=== PATIENT | male | born 1975 | race Caucasian/White ===

== ENCOUNTER 2016-11-14 13:31 | Emergency (ER) | payer SELFPAY ==
--- NOTE | 2016-11-14 15:45 | ER Document Report ---
ED Medical Screen (RME) - General Chief Complaint: Leg Pain Stated Complaint: LEFT FOOT SWELLING Time Seen by Provider: 11/14/16 15:38 Mode of Arrival: Ambulatory Information source: Patient Notes: 41-year-old male history of sleep apnea who has not been on BiPAP machine with a history of diabetes presents with complaints of left foot pain tingling sensation as well as shortness of breath intermittent chest pain I have greeted and performed a rapid initial assessment of this patient. A comprehensive ED assessment and evaluation of the patient, analysis of test results and completion of the medical decision making process will be conducted by additional ED providers. PHYSICAL EXAMINATION: GENERAL: Well-appearing, well-nourished and in no acute distress. HEAD: Atraumatic, normocephalic. EYES: Pupils equal round extraocular movements intact, conjunctiva are normal. ENT: Nares patent NECK: Normal range of motion LUNGS: No respiratory distress Musculoskeletal: Normal range of motion NEUROLOGICAL: Normal speech, normal gait. PSYCH: Normal mood, normal affect. SKIN: Warm, Dry, normal turgor, no rashes or lesions noted. TRAVEL OUTSIDE OF THE [place] IN LAST 30 DAYS: No - Related Data Allergies/Adverse Reactions: No Known Allergies Allergy (Verified 11/14/16 14:10) Past Medical History - Social History Chew tobacco use (# tins/day): No Frequency of alcohol use: None Drug Abuse: None - Past Medical History Cardiac Medical History: Denies: Hx Coronary Artery Disease, Hx Hypertension Pulmonary Medical History: Denies: Hx Asthma, Hx Bronchitis, Hx COPD, Hx Pneumonia Neurological Medical History: Denies: Hx Cerebrovascular Accident, Hx Seizures Endocrine Medical History: Reports: Hx Diabetes Mellitus Type 2 Renal/ Medical History: Denies: Hx Peritoneal Dialysis Musculoskeltal Medical History: Denies Hx Arthritis Past Surgical History: Reports: Hx Neurologic Surgery - L4-L5 disc trim - Immunizations Hx Diphtheria, Pertussis, Tetanus Vaccination: Yes Physical Exam - Vital signs Vitals: Temp Pulse Resp BP Pulse Ox 98.5 F 87 16 152/85 H 97 11/14/16 14:05 11/14/16 14:05 11/14/16 14:05 11/14/16 14:05 11/14/16 14:05 Course - Vital Signs Vital signs: Temp Pulse Resp BP Pulse Ox 98.5 F 87 16 152/85 H 97 11/14/16 14:05 11/14/16 14:05 11/14/16 14:05 11/14/16 14:05 11/14/16 14:05
[2016-11-14 16:08] LABS: ABSOLUTE BASOPHILS # (AUTO) 0.1 10^3/uL (0.0-0.2); ABSOLUTE EOSINOPHILS # (AUTO) 0.5 10^3/uL (0.0-0.6); ABSOLUTE LYMPHOCYTES (AUTO) 3.2 10^3/uL (0.5-4.7); ABSOLUTE MONOCYTES (AUTO) 0.8 10^3/uL (0.1-1.4); ABSOLUTE NEUT (AUTO) 5.7 10^3/uL (1.7-8.2); EOSINOPHILS % (AUTO) 4.8 % (0-6); HEMATOCRIT 46.1 % (37.9-51.0); HEMOGLOBIN 15.9 g/dL (13.5-17.0); HGB HCT DIFFERENCE 1.6; LYMPHOCYTES % (AUTO) 30.7 % (13-45); MEAN CORPUSCULAR HEMOGLOBIN 29.9 pg (27.0-33.4); MEAN CORPUSCULAR HGB CONC 34.5 g/dL (32.0-36.0); MEAN CORPUSCULAR VOLUME 87 fl (80-97); MONOCYTES % (AUTO) 8.2 % (3-13); RED BLOOD COUNT 5.33 10^6/uL (4.35-5.55); RED CELL DISTRIBUTION WIDTH 14.3 % (11.5-14.0); SEGMENTED NEUTROPHILS % (AUTO) 55.3 % (42-78); WHITE BLOOD COUNT 10.3 10^3/uL (4.0-10.5)
--- NOTE | 2016-11-14 16:10 | RADIOLOGY REPORT (SQ) ---
EXAM DESCRIPTION: CHEST PA/LAT COMPLETED DATE/TIME: 11/14/2016 3:59 pm REASON FOR STUDY: intermittnet chest pain COMPARISON: 12/12/2015. EXAM PARAMETERS: NUMBER OF VIEWS: two views TECHNIQUE: Digital Frontal and Lateral radiographic views of the chest acquired. RADIATION DOSE: NA LIMITATIONS: none FINDINGS: LUNGS AND PLEURA: Mild chronic interstitial changes. No opacities, masses or pneumothorax . No pleural effusion. MEDIASTINUM AND HILAR STRUCTURES: No masses or contour abnormalities. HEART AND VASCULAR STRUCTURES: Heart normal size. No evidence for failure. BONES: No acute findings. HARDWARE: None in the chest. OTHER: No other significant finding. IMPRESSION: NO ACUTE RADIOGRAPHIC FINDING IN THE CHEST. TECHNICAL DOCUMENTATION: JOB ID: [id number]- All Rights Reserved
[2016-11-14 16:20] LABS: ALANINE AMINOTRANSFERASE 54 U/L (21-72); ALBUMIN 4.5 g/dL (3.5-5.0); ALKALINE PHOSPHATASE 84 U/L (38-126); ANION GAP 12 (5-19); ASPARTATE AMINO TRANSFERASE 25 U/L (17-59); BILIRUBIN,DIRECT 0.3 mg/dL (0.0-0.4); BILIRUBIN,TOTAL 0.7 mg/dL (0.2-1.3); BLOOD UREA NITROGEN 11 mg/dL (7-20); CALCIUM 9.6 mg/dL (8.4-10.2); CARBON DIOXIDE 26 mmol/L (22-30); CHLORIDE 102 mmol/L (98-107); CREATINE KINASE 321 U/L (55-170); CREATININE RESULT 0.62 mg/dL (0.52-1.25); GLUCOSE 183 mg/dL (75-110); POTASSIUM 4.6 mmol/L (3.6-5.0); SODIUM 140.1 mmol/L (137-145); TOTAL PROTEIN 7.5 g/dL (6.3-8.2)
--- NOTE | 2016-11-14 16:29 | ER Document Report ---
HPI - HPI Pain Level: 4 Notes: Patient is a 41-year-old male who presents the ED complaining of left lower extremity pain and swelling 1 month intermittently but has been constant since this morning upon waking up. Patient states that the pain increases with ambulation. He is not aware of any known injury. He has associated numbness and tingling into his foot without any back pain. Patient states that he feels like his left lower leg/foot is a little swollen when compared to the right. Patient does state that he did have a previous L4 through L5 neck surgery, but has not had any other back pains since the surgery years ago. Patient states that he is also had dyspnea on exertion and fatigue over the last month without any correlating chest pain. Pt states he will become SOB walking to the bathroom and back. Patient states that on occasion when he lays down he will have a substernal chest pain which resolved after a few minutes. Pt states that he is not sure if it is related to his mild anxiety. Patient has a significant past medical history of diabetes and KAYLEIGH. Patient states that he does has not been on any medication in a couple of years has not been using his CPAP machine. Patient denies any drug allergies. Patient does admit to smoking but denies any illicit drug use. [place] [facility] [place] Patient states that currently he does not have any trouble breathing or shortness of breath. His primary concern right now is his left lower extremity discomfort. Patient states that both of his hands and both of his feet do become numb and tingly on and off over the last several months. Patient states that he is still eating and drinking without any difficulties. Patient does note urinary frequency without any burning, blood, or urgency. His bowel movements have been normal as well. Denies any headache, fever, URI, sore throat, palpitations, syncope, cough, hemoptysis, shortness of breath at rest, wheeze, abdominal pain, nausea/ vomiting/diarrhea, urinary retention, dysuria, hematuria, loss of control of bowel or bladder, saddle anesthesia, muscle paralysis/weakness, or rash. - ROS Notes: REVIEW OF SYSTEMS: CONSTITUTIONAL : Denies fever, chills, or sweats. Denies recent illness. EENT: Denies eye, ear, throat, or mouth pain or symptoms. Denies nasal or sinus congestion or discharge. Denies throat, tongue, or mouth swelling or difficulty swallowing. CARDIOVASCULAR: see hpi RESPIRATORY: Denies cough, cold, or chest congestion. Denies shortness of breath, difficulty breathing, or wheezing. GASTROINTESTINAL: Denies abdominal pain or distention. Denies nausea, vomiting , or diarrhea. Denies blood in vomitus, stools, or per rectum. Denies black, tarry stools. Denies constipation. GENITOURINARY: Denies difficulty urinating, painful urination, burning, frequency, blood in urine, or discharge. MUSCULOSKELETAL: see hpi SKIN: Denies rash, lesions or sores. NEUROLOGICAL: Denies confusion or altered mental status. Denies passing out or loss of consciousness. Denies dizziness or lightheadedness. Denies headache. Denies weakness or paralysis or loss of use of either side. Denies problems with gait or speech. Denies sensory loss, numbness, or tingling. Denies seizures. PSYCHIATRIC: see hpi. Denies depression, suicidal ideation, or homicidal ideation. ALL OTHER SYSTEMS REVIEWED AND NEGATIVE. Dictation was performed using [employer] voice recognition software - DERM Skin Color: Normal Past Medical History - General Information source: Patient - Social History Smoking Status: Current Every Day Smoker Chew tobacco use (# tins/day): No Frequency of alcohol use: None Drug Abuse: None Family History: Reviewed & Not Pertinent Patient has suicidal ideation: No Patient has homicidal ideation: No - Past Medical History Cardiac Medical History: Denies: Hx Coronary Artery Disease, Hx Hypertension Pulmonary Medical History: Denies: Hx Asthma, Hx Bronchitis, Hx COPD, Hx Pneumonia Neurological Medical History: Denies: Hx Cerebrovascular Accident, Hx Seizures Endocrine Medical History: Reports: Hx Diabetes Mellitus Type 2 Renal/ Medical History: Denies: Hx Peritoneal Dialysis Musculoskeltal Medical History: Denies Hx Arthritis Past Surgical History: Reports: Hx Neurologic Surgery - L4-L5 disc trim - Immunizations Hx Diphtheria, Pertussis, Tetanus Vaccination: Yes Vertical Provider Document - CONSTITUTIONAL Agree With Documented VS: Yes Notes: PHYSICAL EXAMINATION: GENERAL: Well-appearing, well-nourished and in no acute distress. Obese. HEAD: Atraumatic, normocephalic. EYES: Pupils equal round and reactive to light, extraocular movements intact, sclera anicteric, conjunctiva are normal. ENT: EAC clear b/l. TM's intact b/l without erythema, fluid, or perforation. Nares patent and without discharge. oropharynx clear without exudates. No tonsilar hypertrophy or erythema. Moist mucous membranes. No sinus tenderness. NECK: Normal range of motion, supple without lymphadenopathy. no rigidity. LUNGS: Breath sounds clear to auscultation bilaterally and equal. No wheezes rales or rhonchi. HEART: Regular rate and rhythm without murmurs, rubs, gallops. ABDOMEN: Soft, nontender, nondistended abdomen. No guarding, no rebound. No masses appreciated. Normal bowel sounds present. No CVA tenderness bilaterally. Musculoskeletal: LE's b/l: FROM to passive/active. Strength 5+/5. Dec sensation to the left foot when compared to the rt proximal to the mid foot near L5 distribution. Pulses 2+ b/l. Carola mildly positive to the left calf. No excessive warmth or erythema. No inguinal adenopathy or masses appreciated. No abscess, streaks, or cellulitis noted. SLR negative b/l. Extremities: No cyanosis, clubbing, or edema b/l. Peripheral pulses 2+. Capillary refill less than 2 seconds. NEUROLOGICAL: Normal speech. Pt favors left leg. Normal motor exam. PSYCH: Normal mood, normal affect. SKIN: Warm, Dry, normal turgor, no rashes or lesions noted. - INFECTION CONTROL TRAVEL OUTSIDE OF THE [place] IN LAST 30 DAYS: No - RESPIRATORY O2 Sat by Pulse Oximetry: 97 Course - Re-evaluation Re-evalutation: 11/14/16 18:34 Patient is an afebrile, well-hydrated, 41-year-old diabetic male who presents to the ED with dyspnea on exertion, fatigue, left lower extremity pain. I suspect that he may have peripheral neuritis causing his pain related to his diabetes. Vitals are stable. PE otherwise unremarkable for any other focal neurological deficits. CXR, EKG, and Lt LE US were unremarkable for any acute pathology. CBC, CMP, and initial Cardiac Enzymes unremarkable. EKG and serial cardiac enzymes pending (1949). Heart score of 2. Reviewed with Dr. Navarro who would like the serial enzymes and admit for further eval/work up tomorrow. 11/14/16 20:50 BNP negative. 2nd Cardiac Enzymes negative CTA of the chest negative for acute pathology Reviewed case with patient who is in agreement with being admitted for further evaluation and probable testing tomorrow. Reviewed case with Dr. Knight, hospitalist, who declined admission for the patient. Dr. Knight said, "it is not real" pertaining to his GOMEZ based on his work up and ambulatory pulse o2 >96%. At this time, we will discharge with strict return precautions and advised strict outpatient f/u with the welding machine operator helper gas and his PCM tomorrow if able. Risks/ benefits understood. Low suspicion for any ruptured esophagus, pneumothorax, pulmonary embolism, acute coronary syndrome, thoracic aortic dissection, or DVT at this time. Patient is aware that his condition can change from initial presentation he needs to monitor symptoms closely for any acute changes and seek medical attention if so. Conservative measures for symptoms. Return to the ED with any worsening/concerning symptoms otherwise as reviewed discharge. Patient is in agreement. - Vital Signs Vital signs: Temp Pulse Resp BP Pulse Ox 98.5 F 87 16 152/85 H 97 11/14/16 14:05 11/14/16 14:05 11/14/16 14:05 11/14/16 14:05 11/14/16 14:05 - Laboratory Result Diagrams: 11/14/16 15:50 11/14/16 15:50 Laboratory results interpreted by me: 11/14/16 11/14/16 15:50 15:50 RDW 14.3 H Plt Count 146 L Glucose 183 H Creatine Kinase 321 H Discharge - Discharge Clinical Impression: Dyspnea on exertion, Lower extremity pain, left Condition: Stable Disposition: HOME, SELF-CARE Additional Instructions: Rest, Ice, Compression, Elevation Tylenol/ibuprofen as needed Light stretches daily Strength exercises as able Moist heat and massage may help F/u with your PCP tomorrow for recheck Call Cardiology for a consult tomorrow for recheck and further evaluation Consider consult(s) with Orthopedics, physical therapy for ongoing/worsening symptoms Return to the ED with any worsening symptoms and/or development of fever, headache, chest pain, palpitations, syncope, shortness of breath, trouble breathing, abdominal pain, n/v/d, blood in stool/urine, loss of control of bowel /bladder, urinary retention, muscle weakness/paralysis, saddle anesthesia, numbness/tingling, or other worsening symptoms that are concerning to you. Forms: Elevated Blood Pressure, Smoking Cessation Education Referrals: OSCAR WISE MD [ACTIVE STAFF] - Follow up tomorrow PRESTON PEREZ MD [ACTIVE STAFF] - [facility] [Provider Group] - Follow up tomorrow
[2016-11-14 16:32] LABS: CREATINE KINASE MB 2.69 ng/mL (<4.55)
[2016-11-14 16:33] LABS: TROPONIN I < 0.012 ng/mL
--- NOTE | 2016-11-14 17:00 | EKG REPORT ---
SEVERITY:- NORMAL ECG - SINUS RHYTHM : Confirmed by: Hilario Murphy MD 14-Nov-2016 16:58:50
--- NOTE | 2016-11-14 18:52 | RADIOLOGY REPORT (SQ) ---
EXAM DESCRIPTION: VENOUS UNILATERAL LOWER COMPLETED DATE/TIME: 11/14/2016 6:07 pm REASON FOR STUDY: Left LE pain COMPARISON: None. TECHNIQUE: Dynamic and static soni scale and color images acquired of the left leg venous system. Se lected spectral images acquired with additional compression and augmentation maneuvers. The contralat eral common femoral vein and saphenofemoral junction were also imaged. Images stored on PACS. LIMITATIONS: None. FINDINGS: COMMON FEMORAL: Normal phasicity, compression and augmentation. No visualized echogenic ma terial on soni scale. No defects on color images. FEMORAL: Normal compression and augmentation. No visualized echogenic material on soni scale. No defe cts on color images. POPLITEAL: Normal compression, augmentation. No visualized echogenic material on soni scale. No defec ts on color images. CALF VESSELS: Normal compression, augmentation. No visualized echogenic material on soni scale. No de fects on color images. GSV and SSV: Normal compression, augmentation. No visualized echogenic material on soni scale. No def ects on color images. ANY DEEP VENOUS INSUFFICIENCY: Not evaluated. ANY EVIDENCE OF POPLITEAL CYST: No. OTHER: No other significant finding. CONTRALATERAL COMMON FEMORAL VEIN AND SAPHENOFEMORAL JUNCTION: Normal phasicity, compression and augmentation. No visualized echogenic material on soni scale. No de fects on color images. IMPRESSION: No DVT. TECHNICAL DOCUMENTATION: JOB ID: [id number] [employer]- All Rights Reserved
[2016-11-14 19:33] LABS: APPEARANCE,URINE CLEAR; BILIRUBIN,URINE NEGATIVE (NEGATIVE); GLUCOSE, URINE NEGATIVE (NEGATIVE); KETONES,URINE NEGATIVE (NEGATIVE); LEUKOCYTE ESTERASE,URINE NEGATIVE (NEGATIVE); NITRITE,URINE NEGATIVE (NEGATIVE); PROTEIN,URINE NEGATIVE (NEGATIVE); URINE SPECIFIC GRAVITY 1.025
--- NOTE | 2016-11-14 20:09 | RADIOLOGY REPORT (SQ) ---
EXAM DESCRIPTION: CTA CHEST COMPLETED DATE/TIME: 11/14/2016 7:27 pm REASON FOR STUDY: GOMEZ COMPARISON: None. TECHNIQUE: CT scan of the chest performed using helical scanning technique with dynamic intravenous contrast injection. Images reviewed with lung, soft tissue and bone windows. Reconstructed coronal and sagittal MPR images reviewed. Additional 3 dimensional post-processing performed to develop Maximal Intensity Projection images (IL P). All images stored on PACS. All CT scanners at this facility use dose modulation, iterative reconstruction, and/or weight based d osing when appropriate to reduce radiation dose to as low as reasonably achievable (ALARA). [facility]: Dose Right [facility]: CareDose [facility]: Dose Right [facility]: Teradose 4D [facility]: Kofikafe CONTRAST TYPE AND DOSE: contrast/concentration: Isovue 370.00 mg/ml; Total Contrast Delivered: 157.0 ml; Total Saline Delivered: 140.0 ml RENAL FUNCTION: GFR > 60. RADIATION DOSE: Up-to-date CT equipment and radiation dose reduction techniques were employed. CTDIv ol: 46.9 - 58.6 mGy. DLP: 4092 mGy-cm. . LIMITATIONS: Systemic phase contrast bolus timing and mild breathing motion artifact. FINDINGS: LUNGS AND PLEURA: Mild bronchial wall thickening. No masses, infiltrates, pneumothorax. No pleural effusions, calcifications. AORTA AND GREAT VESSELS: No aneurysm or dissection. HEART: No pericardial effusion. PULMONARY ARTERIES: No emboli visualized in the main pulmonary arteries. Contrast bolus timing and b reathing motion limits evaluation of the segmental branches. HILAR AND MEDIASTINAL STRUCTURES: No identified masses or abnormal nodes. HARDWARE: None in the chest. UPPER ABDOMEN: No significant findings. Limited exam. THYROID AND OTHER SOFT TISSUES: No masses. No adenopathy. BONES: No acute or significant finding. 3D MIPS: Confirm above findings. OTHER: No other significant finding. IMPRESSION: No emboli visualized in the main pulmonary arteries. Contrast bolus timing and breathin g motion limits evaluation of the segmental branches. Mild bronchial wall thickening. No consolidat ion. TECHNICAL DOCUMENTATION: JOB ID: [id number] Quality ID # [id number]: Final reports with documentation of one or more dose reduction techniques (e.g., Au tomated exposure control, adjustment of the mA and/or kV according to patient size, use of iterative reconstruction technique) 2010 [employer]- All Rights Reserved
[2016-11-14 20:34] LABS: CREATINE KINASE MB 2.48 ng/mL (<4.55)
[2016-11-14 20:38] LABS: TROPONIN I < 0.012 ng/mL
--- NOTE | 2016-11-14 21:27 | EKG REPORT ---
SEVERITY:- ABNORMAL ECG - SINUS RHYTHM PROBABLE INFERIOR INFARCT, OLD : Confirmed by: Hilario Murphy MD 14-Nov-2016 21:27:25
[2016-11-14 21:30] VITALS: BP 149/84
== END 2016-11-14 21:20 | disposition home or self-care (01) ==
LOC: ER 13:31
DX: M79.605 Pain in left leg (principal); R06.09 Other forms of dyspnea; R53.83 Other fatigue; R20.0 Anesthesia of skin; R20.2 Paresthesia of skin; R07.89 Other chest pain; F41.9 Anxiety disorder, unspecified; E11.9 Type 2 diabetes mellitus without complications; R35.0 Frequency of micturition; F17.200 Nicotine dependence, unspecified, uncomplicated
CPT/HCPCS: 36415; 71020; 71275; 80053; 81001; 82550; 82553; 83880; 84484; 85025; 93005; 93010; 93971; 99284

== ENCOUNTER 2016-12-28 19:24 | Emergency (ER) | payer SELFPAY ==
--- NOTE | 2016-12-28 19:48 | ER Document Report ---
ED General - General Chief Complaint: Chest Pain Stated Complaint: CHEST PAIN Time Seen by Provider: 12/28/16 19:36 Notes: Patient is a 41-year-old male who comes emergency department for complaints of headache and a pain in his chest. He states that he was "feeling very stressed " and he started having a throbbing headache, he got out of his truck and he felt a pain through the center of his chest that lasted for a few seconds, he states that he buckled and went slowly down to the ground, he did not hit his head on the ground. He denies syncope. He denies vomiting. He denies pain or stiffness in his neck, denies fever. He states he has been getting headaches frequently recently. He smokes, he denies any daily medications. He states he is stressed out for multiple reasons including custody issues, relationship issues, and family illnesses. He denies any family history of [place] or heart disease. Patient given 324 mg of aspirin and one SL nitroglycerin by EMS. TRAVEL OUTSIDE OF THE [place] IN LAST 30 DAYS: No - Related Data Allergies/Adverse Reactions: No Known Allergies Allergy (Verified 11/14/16 14:10) Past Medical History - General Information source: Patient - Social History Smoking Status: Current Every Day Smoker Smoking Education Provided: Yes - <3 min Frequency of alcohol use: None Drug Abuse: None Lives with: Family Family History: Reviewed & Not Pertinent - Past Medical History Cardiac Medical History: Denies: Hx Coronary Artery Disease, Hx Hypertension Pulmonary Medical History: Denies: Hx Asthma, Hx Bronchitis, Hx COPD, Hx Pneumonia Neurological Medical History: Denies: Hx Cerebrovascular Accident, Hx Seizures Endocrine Medical History: Reports: Hx Diabetes Mellitus Type 2 Renal/ Medical History: Denies: Hx Peritoneal Dialysis Musculoskeltal Medical History: Denies Hx Arthritis Past Surgical History: Reports: Hx Neurologic Surgery - L4-L5 disc trim - Immunizations Hx Diphtheria, Pertussis, Tetanus Vaccination: Yes Review of Systems - Review of Systems Constitutional: No symptoms reported EENT: No symptoms reported Cardiovascular: See HPI Respiratory: No symptoms reported Gastrointestinal: No symptoms reported Genitourinary: No symptoms reported Male Genitourinary: No symptoms reported Musculoskeletal: No symptoms reported Skin: No symptoms reported Hematologic/Lymphatic: No symptoms reported Neurological/Psychological: See HPI Physical Exam - Vital signs Vitals: Resp BP Pulse Ox 14 139/77 H 95 12/28/16 19:41 12/28/16 19:41 12/28/16 19:41 Interpretation: Normal - General General appearance: Appears well, Alert, Anxious In distress: None - Patient appears nervous and worked up but he does not appear to be in distress - HEENT Head: Normocephalic, Atraumatic Eyes: Normal Pupils: PERRL - Respiratory Respiratory status: No respiratory distress Chest status: Nontender Breath sounds: Normal. No: Decreased air movement, Wheezing Chest palpation: Normal - Cardiovascular Rhythm: Regular. No: Tachycardia Heart sounds: Normal auscultation, S1 appreciated, S2 appreciated Murmur: No - Abdominal Inspection: Normal Distension: No distension Bowel sounds: Normal Tenderness: Nontender Organomegaly: No organomegaly - Back Back: Normal, Nontender. No: Tender - Extremities General upper extremity: Normal inspection, Nontender, Normal color, Normal ROM , Normal temperature General lower extremity: Normal inspection, Nontender, Normal color, Normal ROM , Normal temperature, Normal weight bearing. No: Carola's sign - Neurological Neuro grossly intact: Yes Cognition: Normal Orientation: AAOx4 Slade Coma Scale Eye Opening: Spontaneous Slade Coma Scale Verbal: Oriented Slade Coma Scale Motor: Obeys Commands [place] Coma Scale Total: 15 Speech: Normal Motor strength normal: LUE, RUE, LLE, RLE Sensory: Normal - Psychological Associated symptoms: Normal affect, Normal mood - Skin Skin Temperature: Warm Skin Moisture: Dry Skin Color: Normal, Flushed - Patient is mildly flushed in appearance Course - Re-evaluation Re-evalutation: Patient initially very anxious, he is only worried about his headache. EKG shows sinus tachycardia with no T-wave inversions or ST segment changes in consecutive leads. No significant change from prior. Although patient appears anxious he does not appear to be in distress, he has a normal neurological examination. Because of sudden onset of headache after discussion decision was made to perform CAT scan to rule out subarachnoid hemorrhage or other acute intracranial abnormality. Headache started about 1.5 hours ago, well within the window 3 hours for optimal imaging. CAT scan performed, shows incidental cyst in the right temporal area but no acute abnormalities. After Reglan and Benadryl patient's headache resolved. CBC, chemistry with no concerning acute abnormalities. Cardiac enzymes negative. Chest x-ray unremarkable. Patient with no repeat of the few seconds of discomfort in his chest that he had earlier. His heart score is less than 3. Repeat cardiac enzyme is negative. On re-evaluation patient well appearing, asking to leave. Discussed workup findings. Patient states he feels like he just gets stressed and anxious. He already has 18 pills left over of ativan given to him from before. He states he will use them sparingly and as needed during this time. He denies SI or HI. He states he will follow up with his PCP first for the cyst. Discussed return precautions. Patient states understanding and agreement. - Vital Signs Vital signs: Temp Pulse Resp BP Pulse Ox 18 133/84 H 96 12/29/16 00:00 12/29/16 00:00 12/29/16 00:00 - Laboratory Result Diagrams: 12/28/16 19:49 12/28/16 19:49 Laboratory results interpreted by me: 12/28/16 19:49 Glucose 144 H Creatine Kinase 180 H Discharge - Discharge Clinical Impression: Anxiety Headache Qualifiers: Headache type: unspecified Headache chronicity pattern: acute headache Intractability: not intractable Qualified Code(s): R51 - Headache Chest pain Qualifiers: Chest pain type: unspecified Qualified Code(s): R07.9 - Chest pain, unspecified Condition: Stable Disposition: HOME, SELF-CARE Additional Instructions: Your workup and exam show no concerning abnormalities. There is an incidental finding of a cyst in your brain (see report given). Follow up with your Primary Provider for additional referral and monitoring. Take your previously prescribed Ativan if needed for anxiety, take Tylenol or ibuprofen for headache if needed. Return to the ED for any concerning symptoms -return or worsening headache or chest pain, vomiting, fever, shortness of breath, or any other concerning symptoms. Forms: Return to Work
[2016-12-28 20:05] LABS: ABSOLUTE BASOPHILS # (AUTO) 0.1 10^3/uL (0.0-0.2); ABSOLUTE EOSINOPHILS # (AUTO) 0.3 10^3/uL (0.0-0.6); ABSOLUTE LYMPHOCYTES (AUTO) 2.3 10^3/uL (0.5-4.7); ABSOLUTE MONOCYTES (AUTO) 0.6 10^3/uL (0.1-1.4); ABSOLUTE NEUT (AUTO) 6.9 10^3/uL (1.7-8.2); BASOPHILS % (AUTO) 0.7 % (0-2); EOSINOPHILS % (AUTO) 2.9 % (0-6); HEMOGLOBIN 15.1 g/dL (13.5-17.0); HGB HCT DIFFERENCE 3.3; MEAN CORPUSCULAR HEMOGLOBIN 30.3 pg (27.0-33.4); MEAN CORPUSCULAR VOLUME 84 fl (80-97); RED BLOOD COUNT 4.98 10^6/uL (4.35-5.55); SEGMENTED NEUTROPHILS % (AUTO) 67.4 % (42-78); WHITE BLOOD COUNT 10.2 10^3/uL (4.0-10.5)
--- NOTE | 2016-12-28 20:24 | RADIOLOGY REPORT (SQ) ---
EXAM DESCRIPTION: CT HEAD WITHOUT COMPLETED DATE/TIME: 12/28/2016 7:59 pm REASON FOR STUDY: sudden onset headache COMPARISON: None. TECHNIQUE: Axial images acquired through the brain without intravenous contrast. Images reviewed wi th bone, brain and subdural windows. Images stored on PACS. All CT scanners at this facility use dose modulation, iterative reconstruction, and/or weight based d osing when appropriate to reduce radiation dose to as low as reasonably achievable (ALARA). [facility]: Dose Right [facility]: CareDose [facility]: Dose Right [facility]: Teradose 4D [facility]: [employer] RADIATION DOSE: Up-to-date CT equipment and radiation dose reduction techniques were employed. CTDIv ol: 64.6 mGy. DLP: 1163 mGy-cm. mGy. LIMITATIONS: None. FINDINGS: VENTRICLES: Normal size and contour. CEREBRUM: No masses. No hemorrhage. No midline shift. No evidence for acute infarction. Normal gra y/white matter differentiation. No areas of low density in the white matter. A small arachnoid cyst is identified at the level of the anterior right temporal lobe. CEREBELLUM: No masses. No hemorrhage. No alteration of density. No evidence for acute infarction. EXTRAAXIAL SPACES: No fluid collections. No masses. ORBITS AND GLOBE: No intra- or extraconal masses. Normal contour of globe without masses. CALVARIUM: No fracture. PARANASAL SINUSES: No fluid or mucosal thickening. SOFT TISSUES: No mass or hematoma. OTHER: No other significant finding. IMPRESSION: Small arachnoid cyst at the level of the anterior right temporal lobe. No other signifi cant findings. Other findings as noted above EVIDENCE OF ACUTE STROKE: NO. COMMENT: Quality ID # [id number]: Final reports with documentation of one or more dose reduction techniques (e.g., Automated exposure control, adjustment of the mA and/or kV according to patient size, use of iterative reconstruction technique) TECHNICAL DOCUMENTATION: JOB ID: [id number] [employer]- All Rights Reserved
--- NOTE | 2016-12-28 20:26 | RADIOLOGY REPORT (SQ) ---
EXAM DESCRIPTION: CHEST SINGLE VIEW COMPLETED DATE/TIME: 12/28/2016 8:01 pm REASON FOR STUDY: bed 3 cp COMPARISON: November 2016 EXAM PARAMETERS: NUMBER OF VIEWS: One view. TECHNIQUE: Single frontal radiographic view of the chest acquired. RADIATION DOSE: NA LIMITATIONS: None. FINDINGS: LUNGS AND PLEURA: No opacities, masses or pneumothorax. No pleural effusion. MEDIASTINUM AND HILAR STRUCTURES: No masses. Contour normal. HEART AND VASCULAR STRUCTURES: Heart normal in size. Normal vasculature. BONES: No acute findings. HARDWARE: None in the chest. OTHER: No other significant finding. IMPRESSION: NO ACUTE RADIOGRAPHIC FINDING IN THE CHEST. TECHNICAL DOCUMENTATION: JOB ID: [id number]
[2016-12-28] MEDS ORDERED: METOCLOPRAMIDE HCL INJ/PF 10 MG/2 ML SDV IV ONE (20:31)
[2016-12-28] MEDS ORDERED: DIPHENHYDRAMINE HCL 50 MG/ML VIAL IV ONE (20:31)
[2016-12-28 20:33] LABS: ALANINE AMINOTRANSFERASE 53 U/L (21-72); ALBUMIN 4.4 g/dL (3.5-5.0); ALKALINE PHOSPHATASE 97 U/L (38-126); ANION GAP 13 (5-19); ASPARTATE AMINO TRANSFERASE 29 U/L (17-59); BILIRUBIN,DIRECT 0.4 mg/dL (0.0-0.4); BILIRUBIN,TOTAL 0.8 mg/dL (0.2-1.3); BLOOD UREA NITROGEN 12 mg/dL (7-20); CALCIUM 9.8 mg/dL (8.4-10.2); CARBON DIOXIDE 23 mmol/L (22-30); CHLORIDE 105 mmol/L (98-107); CREATINE KINASE 180 U/L (55-170); CREATININE RESULT 0.65 mg/dL (0.52-1.25); GLUCOSE 144 mg/dL (75-110); POTASSIUM 4.1 mmol/L (3.6-5.0); SODIUM 140.5 mmol/L (137-145); TOTAL PROTEIN 7.2 g/dL (6.3-8.2)
[2016-12-28 20:44] LABS: CREATINE KINASE MB 1.81 ng/mL (<4.55)
[2016-12-28 20:45] LABS: TROPONIN I < 0.012 ng/mL
[2016-12-29 00:19] VITALS: BP 133/84
--- NOTE | 2016-12-29 08:25 | EKG REPORT ---
SEVERITY:- OTHERWISE NORMAL ECG - SINUS TACHYCARDIA : Confirmed by: Hilario Murphy MD 29-Dec-2016 08:24:49
== END 2016-12-29 00:22 | disposition home or self-care (01) ==
LOC: ER 19:24
DX: F41.9 Anxiety disorder, unspecified (principal); R07.9 Chest pain, unspecified; R51 Headache; F17.210 Nicotine dependence, cigarettes, uncomplicated; E11.9 Type 2 diabetes mellitus without complications
CPT/HCPCS: 93005; 99285; 96374; 96375; 36415; 82553; 82550; 85025; 80053; 84484; 71010; 70450; 93010; J1200; J2765

== ENCOUNTER 2017-08-22 17:40 | Emergency (ER) | payer BC ==
--- NOTE | 2017-08-22 18:55 | ER Document Report ---
ED Medical Screen (RME) - General Chief Complaint: Leg Pain Stated Complaint: LEG PAIN Time Seen by Provider: 08/22/17 18:41 Notes: RAPID MEDICAL EVALUATION DISCLOSURE I have seen this patient as part of a Rapid Medical Evaluation and, if applicable, placed any initially appropriate orders. The patient will be seen and fully evaluated, including a full history and physical exam, by a provider ( in Main ED or Fast Track) when a room becomes available. 41-year-old male here with complaints of bilateral leg swelling and shortness of breath progressively worsening over the past few weeks. He has noticed that he also has pain along with the swelling in his legs and that the left appears to be larger than the right. He has no prior history of DVT. He has chest pain "off and on" chronically but this morning had some chest pressure however does not have any. He denies any history of COPD or CHF. He does smoke cigarettes. EXAM Mild to moderate lower extremity swelling, left greater than right Bibasilar rales/rhonchi TRAVEL OUTSIDE OF THE [place] IN LAST 30 DAYS: No - Related Data Allergies/Adverse Reactions: No Known Allergies Allergy (Verified 11/14/16 14:10) Past Medical History - Social History Frequency of alcohol use: Occasional Drug Abuse: None - Past Medical History Cardiac Medical History: Denies: Hx Coronary Artery Disease, Hx Hypertension Pulmonary Medical History: Denies: Hx Asthma, Hx Bronchitis, Hx COPD, Hx Pneumonia Neurological Medical History: Denies: Hx Cerebrovascular Accident, Hx Seizures Endocrine Medical History: Reports: Hx Diabetes Mellitus Type 2 Renal/ Medical History: Denies: Hx Peritoneal Dialysis Musculoskeltal Medical History: Denies Hx Arthritis Past Surgical History: Reports: Hx Neurologic Surgery - L4-L5 disc trim - Immunizations Hx Diphtheria, Pertussis, Tetanus Vaccination: Yes Physical Exam - Vital signs Vitals: Temp Pulse Resp BP Pulse Ox 98.7 F 79 18 154/91 H 94 08/22/17 18:22 08/22/17 18:22 08/22/17 18:22 08/22/17 18:22 08/22/17 18:22 Course - Vital Signs Vital signs: Temp Pulse Resp BP Pulse Ox 98.7 F 79 18 154/91 H 94 08/22/17 18:22 08/22/17 18:22 08/22/17 18:22 08/22/17 18:22 08/22/17 18:22
[2017-08-22 19:31] LABS: ABSOLUTE BASOPHILS # (AUTO) 0.1 10^3/uL (0.0-0.2); ABSOLUTE EOSINOPHILS # (AUTO) 0.5 10^3/uL (0.0-0.6); ABSOLUTE LYMPHOCYTES (AUTO) 2.9 10^3/uL (0.5-4.7); ABSOLUTE MONOCYTES (AUTO) 0.7 10^3/uL (0.1-1.4); ABSOLUTE NEUT (AUTO) 5.5 10^3/uL (1.7-8.2); BASOPHILS % (AUTO) 0.6 % (0-2); EOSINOPHILS % (AUTO) 4.8 % (0-6); HEMATOCRIT 45.2 % (37.9-51.0); HEMOGLOBIN 15.5 g/dL (13.5-17.0); LYMPHOCYTES % (AUTO) 30.7 % (13-45); MEAN CORPUSCULAR HEMOGLOBIN 28.9 pg (27.0-33.4); MEAN CORPUSCULAR HGB CONC 34.3 g/dL (32.0-36.0); MEAN CORPUSCULAR VOLUME 84 fl (80-97); MONOCYTES % (AUTO) 7.1 % (3-13); PLATELET COUNT 158 10^3/uL (150-450); RED BLOOD COUNT 5.37 10^6/uL (4.35-5.55); RED CELL DISTRIBUTION WIDTH 14.2 % (11.5-14.0); SEGMENTED NEUTROPHILS % (AUTO) 56.8 % (42-78); TOTAL CELLS COUNTED % (AUTO) 100 %; WHITE BLOOD COUNT 9.6 10^3/uL (4.0-10.5)
[2017-08-22 19:46] LABS: ALANINE AMINOTRANSFERASE 57 U/L (21-72); ALBUMIN 4.3 g/dL (3.5-5.0); ALKALINE PHOSPHATASE 77 U/L (38-126); ANION GAP 16 (5-19); ASPARTATE AMINO TRANSFERASE 23 U/L (17-59); BILIRUBIN,DIRECT 0.3 mg/dL (0.0-0.4); BILIRUBIN,TOTAL 0.4 mg/dL (0.2-1.3); BLOOD UREA NITROGEN 10 mg/dL (7-20); CALCIUM 9.1 mg/dL (8.4-10.2); CARBON DIOXIDE 22 mmol/L (22-30); CHLORIDE 107 mmol/L (98-107); GLUCOSE 99 mg/dL (75-110); POTASSIUM 4.3 mmol/L (3.6-5.0); SODIUM 144.9 mmol/L (137-145)
[2017-08-22 19:59] LABS: NT PRO BNP 50 pg/mL (<125)
[2017-08-22 20:01] LABS: TROPONIN I < 0.012 ng/mL
--- NOTE | 2017-08-22 20:11 | RADIOLOGY REPORT (SQ) ---
EXAM DESCRIPTION: CHEST 2 VIEWS COMPLETED DATE/TIME: 08/22/2017 7:27 pm REASON FOR STUDY: SOB; eval COMPARISON: Chest x-ray 12/28/2016. EXAM PARAMETERS: NUMBER OF VIEWS: two views TECHNIQUE: Digital Frontal and Lateral radiographic views of the chest acquired. RADIATION DOSE: NA LIMITATIONS: none FINDINGS: LUNGS AND PLEURA: No consolidation, pneumothorax or pleural effusion. MEDIASTINUM AND HILAR STRUCTURES: No masses or contour abnormalities. HEART AND VASCULAR STRUCTURES: Heart normal size. No evidence for failure. BONES: No acute findings. HARDWARE: None in the chest. IMPRESSION: No acute radiographic finding in the chest. TECHNICAL DOCUMENTATION: JOB ID: [id number] [employer]- All Rights Reserved Reading location - IP/workstation name: [email or web address]
--- NOTE | 2017-08-22 20:18 | EKG REPORT ---
SEVERITY:- ABNORMAL ECG - SINUS RHYTHM PROBABLE INFERIOR INFARCT, AGE INDETERMINATE : Confirmed by: Vero Arshad 22-Aug-2017 20:17:43
[2017-08-22] MEDS ORDERED: NAPROXEN 250 MG TABLET PO ONE (22:40)
[2017-08-22] MEDS ORDERED: FLUOXETINE HCL 20 MG CAPSULE PO ONE (22:42)
--- NOTE | 2017-08-22 22:47 | ER Document Report ---
ED General - General Chief Complaint: Leg Pain Stated Complaint: LEG PAIN Time Seen by Provider: 08/22/17 18:41 Notes: Patient is a 41-year-old male with a past medical history of morbid obesity, chronic anxiety who presents with 1 month of intermittent episodes of severe pain to the left foot which she states shoots up into his left leg and typically causes him to become diaphoretic nauseated have vomiting and sometimes have associated headaches. He notes that he has chronic chest pressure typically due to feelings of anxiety and he notes that this is not new or different today. He states that he had one of these episodes today which is more severe than normal which prompted him come to the emergency department. He states these episodes are typically prompted by him walking on the foot or standing up after prolonged period of sitting. He describes it as a severe, stabbing pain to the bottom of his left foot that radiates up the entirety of his leg. He denies any history of similar symptoms prior to the past 1 month. He has not seen a primary care doctor regarding today's concerns. No injury to the foot. No history of DVT or pulmonary embolus. He has not tried anything to improve his pain. His at the bedside notes that she believes he has panic attacks due to the severity of the pain. TRAVEL OUTSIDE OF THE [place] IN LAST 30 DAYS: No - Related Data Allergies/Adverse Reactions: No Known Allergies Allergy (Verified 11/14/16 14:10) Past Medical History - General Information source: Patient - Social History Smoking Status: Current Every Day Smoker Chew tobacco use (# tins/day): No Frequency of alcohol use: Occasional Drug Abuse: None Lives with: Spouse/Significant other Family History: Reviewed & Not Pertinent Patient has suicidal ideation: No Patient has homicidal ideation: No - Past Medical History Cardiac Medical History: Denies: Hx Coronary Artery Disease, Hx Hypertension Pulmonary Medical History: Denies: Hx Asthma, Hx Bronchitis, Hx COPD, Hx Pneumonia Neurological Medical History: Denies: Hx Cerebrovascular Accident, Hx Seizures Endocrine Medical History: Reports: Hx Diabetes Mellitus Type 2 - diet controlled Renal/ Medical History: Denies: Hx Peritoneal Dialysis Musculoskeltal Medical History: Denies Hx Arthritis Past Surgical History: Reports: Hx Neurologic Surgery - L4-L5 disc trim - Immunizations Hx Diphtheria, Pertussis, Tetanus Vaccination: Yes Review of Systems - Review of Systems Notes: Constitutional: Negative for fever. HENT: Negative for sore throat. Eyes: Negative for visual changes. Cardiovascular: Negative for chest pain. Respiratory: Negative for shortness of breath. Gastrointestinal: Negative for abdominal pain, positive for nausea and vomiting Genitourinary: Negative for dysuria. Musculoskeletal: Positive for left foot pain Skin: Negative for rash. Neurological: Negative for headaches, weakness or numbness. 10 point ROS negative except as marked above and in HPI. Physical Exam - Vital signs Vitals: Temp Pulse Resp BP Pulse Ox 98.7 F 79 18 154/91 H 94 08/22/17 18:22 08/22/17 18:22 08/22/17 18:22 08/22/17 18:22 08/22/17 18:22 Interpretation: Hypertensive Notes: PHYSICAL EXAMINATION: GENERAL: Well-appearing, well-nourished and in no acute distress. HEAD: Atraumatic, normocephalic. EYES: Pupils equal round and reactive to light, extraocular movements intact, sclera anicteric, conjunctiva are normal. ENT: nares patent, oropharynx clear without exudates. Moist mucous membranes. NECK: Normal range of motion, supple without lymphadenopathy LUNGS: Breath sounds clear to auscultation bilaterally and equal. No wheezes rales or rhonchi. HEART: Regular rate and rhythm without murmurs ABDOMEN: Soft, morbidly obese abdomen, nontender, normoactive bowel sounds. No guarding, no rebound. No masses appreciated. EXTREMITIES: Normal range of motion, no pitting or edema. No cyanosis. Severe pain on palpation of the central plantar surface of the left foot. Hyper dorsiflexion reproduces pain patient reports. NEUROLOGICAL: No focal neurological deficits. Moves all extremities spontaneously and on command. PSYCH: Moderately anxious SKIN: Warm, Dry, normal turgor, no rashes or lesions noted. Course - Re-evaluation Re-evalutation: 08/22/17 22:42 Patient presents with multiple vague complaints that did not appear to be concerning for any acute life-threatening pathology. Vitals are within normal limits at triage and at time of discharge. Physical examination is unremarkable. Patient has tolerated oral intake without difficulty. Patient was not noted to be in distress at any point during their ER visit. At this time, based on the reassuring evaluation, I do not suspect an acute NH, pulmonary embolus, aortic dissection, acute intra-abdominal pathology, stroke, or sepsis. Ultimately, I believe that the patient has developed acute plantar fasciitis of his left foot based on clinical examination where he has acute tenderness to palpation in this area as well as with hyperextension of the foot which causes a reproduction of the pain he experiences. It appears that the patient likely has an associated panic attack each time he has 1 of these episodes given his otherwise unremarkable workup and the fact of the clinical history is not make sense for any other alternative life-threatening pathology. I have reviewed with the patient the need for immediate weight loss, measures that he can take to improve his plantar fasciitis, and have started him on fluoxetine for his chronic anxiety with associated panic attacks. I have encouraged him to discontinue regular use of sandals. Will discharge with return precautions and follow-up recommendations. Verbal discharge instructions given a the bedside and opportunity for questions given. Medication warnings reviewed. Patient is in agreement with this plan and has verbalized understanding of return precautions and the need for primary care follow-up in the next 24-72 hours. - Vital Signs Vital signs: Temp Pulse Resp BP Pulse Ox 98.0 F 72 18 152/90 H 95 08/22/17 23:04 08/22/17 23:04 08/22/17 23:04 08/22/17 23:04 08/22/17 23:04 - Laboratory Result Diagrams: 08/22/17 19:17 08/22/17 19:17 Laboratory results interpreted by me: 08/22/17 19:17 RDW 14.2 H - Diagnostic Test Radiology reviewed: Image reviewed, Reports reviewed Radiology results interpreted by me: 08/22/17 22:44 Chest x-ray: No acute infiltrate or pneumothorax - EKG Interpretation by Me Additional EKG results interpreted by me: 08/22/17 22:44 Normal sinus rhythm. Rate 69. No ST elevations or depressions. QTC is 403. Discharge - Discharge Clinical Impression: Left foot pain, Plantar fasciitis of left foot, Panic attack, Morbid obesity, Anxiety Condition: Good Disposition: HOME, SELF-CARE Additional Instructions: As we discussed today, please discontinue the use of sandals and wear well fitting shoes with insoles that support your foot. Take the naproxen has been prescribed for the next 2 weeks and see if this helps reduce the discomfort at the bottom of your foot. You should roll a tennis ball or lacrosse ball underneath your foot to help reduce your pain. You should also follow-up with a sports medicine doctor for further assistance with management of your plantar fasciitis. I believe you are having panic attacks associated with your painful episodes. The remainder of your workup is normal today. Your being started on fluoxetine to help control your daily anxiety and reduce the frequency of your panic attacks. Please return to the emergency room immediately if you experience any concerning symptoms including high fevers, severe headache, chest pain, difficulty breathing, abdominal pain, slurred speech, numbness or weakness in your arms or legs, or any other symptom that concerns you. Prescriptions: Fluoxetine HCl 20 mg PO DAILY #30 tablet Naproxen 500 mg PO BID #30 tablet Forms: Return to Work Referrals: PRITI BREEN MD [Primary Care Provider] - Follow up in 3-5 days
[2017-08-22 23:09] VITALS: BP 152/90
--- NOTE | 2017-08-23 11:33 | XCELERA REPORT ---
[address] [address] Lower Extremity Venous Evaluation Name: BK GONZALES III Age: 41 yrs Gender: Male : 1975 Patient Status: Emergency Patient Location: ER Study Date: 08/22/2017 08:59 PM Procedure: Color flow and duplex imaging bilaterally of the veins of the lower extremities as well as the Common Femoral veins. Reason For Study: leg swelling, L>R Ordering Physician: ANDREINA RINALDI Performed By: Brenton Dominique Right Sided Venous Evaluation Difficult to visualize the Peroneal veins. Normal vessel filling wall to wall, compression and augmentation as well as Colour flow down to the infrageniculate veins. Left Sided Venous Evaluation Difficult to visualize the Peroneal veins. Normal vessel filling wall to wall, compression and augmentation as well as Colour flow down to the infrageniculate veins. Interpretation Summary No duplex evidence of DVT or obstruction in the bilateral lower extremities. : ANDREINA RINALDI [place]
== END 2017-08-22 23:09 | disposition home or self-care (01) ==
LOC: ER 17:40
DX: M72.2 Plantar fascial fibromatosis (principal); M79.672 Pain in left foot; F41.0 Panic disorder [episodic paroxysmal anxiety]; F41.9 Anxiety disorder, unspecified; R07.89 Other chest pain; E66.01 Morbid (severe) obesity due to excess calories; Z68.41 Body mass index [BMI] 40.0-44.9, adult; F17.200 Nicotine dependence, unspecified, uncomplicated; E11.9 Type 2 diabetes mellitus without complications
CPT/HCPCS: 36415; 71046; 80053; 83880; 84484; 85025; 93005; 93010; 93970; 99284

== ENCOUNTER 2017-10-25 20:12 | Emergency (ER) | payer BC ==
--- NOTE | 2017-10-25 20:52 | ER Document Report ---
ED Medical Screen (RME) - General Chief Complaint: Headache Stated Complaint: HEADACHE, DIFFICULTY BREATHING Time Seen by Provider: 10/25/17 20:37 Notes: RAPID MEDICAL EVALUATION DISCLOSURE I have seen this patient as part of a Rapid Medical Evaluation and, if applicable, placed any initially appropriate orders. The patient will be seen and fully evaluated, including a full history and physical exam, by a provider ( in Main ED or Fast Track) when a room becomes available. 42-year-old male here with complaints of shortness of breath ongoing for the past few days. He does not have any cough or chest pain/discomfort. He has had bilateral leg swelling ongoing for the past few months, waxing and waning. His symptoms are worse with exertion and laying flat. He also complains of some headaches ongoing for the past 1 month however they have improved and are now more of a "nagging pain". He denies any previous history of heart failure [place]. EXAM Minimal to mild bibasilar rales RRR 1+ pitting edema at the mid shins TRAVEL OUTSIDE OF THE [place] IN LAST 30 DAYS: No - Related Data Allergies/Adverse Reactions: No Known Allergies Allergy (Verified 11/14/16 14:10) Past Medical History - Past Medical History Cardiac Medical History: Denies: Hx Coronary Artery Disease, Hx Hypertension Pulmonary Medical History: Denies: Hx Asthma, Hx Bronchitis, Hx COPD, Hx Pneumonia Neurological Medical History: Denies: Hx Cerebrovascular Accident, Hx Seizures Endocrine Medical History: Reports: Hx Diabetes Mellitus Type 2 - diet controlled Renal/ Medical History: Denies: Hx Peritoneal Dialysis Musculoskeltal Medical History: Denies Hx Arthritis Past Surgical History: Reports: Hx Neurologic Surgery - L4-L5 disc trim - Immunizations Hx Diphtheria, Pertussis, Tetanus Vaccination: Yes Physical Exam - Vital signs Vitals: Temp Pulse Resp BP Pulse Ox 98.8 F 79 20 175/83 H 96 10/25/17 20:30 10/25/17 20:30 10/25/17 20:30 10/25/17 20:30 10/25/17 20:30 Course - Vital Signs Vital signs: Temp Pulse Resp BP Pulse Ox 98.8 F 79 20 175/83 H 96 10/25/17 20:30 10/25/17 20:30 10/25/17 20:30 10/25/17 20:30 10/25/17 20:30 Doctor's Discharge - Discharge Referrals: PRITI BREEN MD [Primary Care Provider] - Follow up as needed
[2017-10-25 21:12] LABS: ABSOLUTE BASOPHILS # (AUTO) 0.1 10^3/uL (0.0-0.2); ABSOLUTE EOSINOPHILS # (AUTO) 0.5 10^3/uL (0.0-0.6); ABSOLUTE LYMPHOCYTES (AUTO) 3.1 10^3/uL (0.5-4.7); ABSOLUTE MONOCYTES (AUTO) 0.5 10^3/uL (0.1-1.4); ABSOLUTE NEUT (AUTO) 5.5 10^3/uL (1.7-8.2); BASOPHILS % (AUTO) 1.2 % (0-2); EOSINOPHILS % (AUTO) 4.9 % (0-6); HEMOGLOBIN 15.3 g/dL (13.5-17.0); LYMPHOCYTES % (AUTO) 31.9 % (13-45); MEAN CORPUSCULAR HEMOGLOBIN 30.8 pg (27.0-33.4); MEAN CORPUSCULAR HGB CONC 36.5 g/dL (32.0-36.0); MEAN CORPUSCULAR VOLUME 85 fl (80-97); MONOCYTES % (AUTO) 5.2 % (3-13); PLATELET COUNT 161 10^3/uL (150-450); RED BLOOD COUNT 4.98 10^6/uL (4.35-5.55); RED CELL DISTRIBUTION WIDTH 13.9 % (11.5-14.0); SEGMENTED NEUTROPHILS % (AUTO) 56.8 % (42-78); TOTAL CELLS COUNTED % (AUTO) 100 %; WHITE BLOOD COUNT 9.7 10^3/uL (4.0-10.5)
--- NOTE | 2017-10-25 21:23 | RADIOLOGY REPORT (SQ) ---
EXAM DESCRIPTION: CHEST 2 VIEWS COMPLETED DATE/TIME: 10/25/2017 9:05 pm REASON FOR STUDY: SOB leg swelling; edema? pna? COMPARISON: 08/22/2017 TECHNIQUE: Frontal and lateral radiographic views of the chest acquired. NUMBER OF VIEWS: Two view. LIMITATIONS: None. FINDINGS: LUNGS AND PLEURA: No opacities, masses or pneumothorax. No pleural effusion. MEDIASTINUM AND HILAR STRUCTURES: No masses or contour abnormalities. HEART AND VASCULAR STRUCTURES: Heart normal size. No evidence for failure. BONES: No acute findings. HARDWARE: None in the chest. OTHER: No other significant finding. IMPRESSION: NO SIGNIFICANT RADIOGRAPHIC FINDING IN THE CHEST. TECHNICAL DOCUMENTATION: JOB ID: [id number] [employer]- All Rights Reserved Reading location - IP/workstation name: [email or web address]
[2017-10-25 21:29] LABS: ALANINE AMINOTRANSFERASE 43 U/L (21-72); ALBUMIN 4.1 g/dL (3.5-5.0); ALKALINE PHOSPHATASE 81 U/L (38-126); ANION GAP 14 (5-19); ASPARTATE AMINO TRANSFERASE 30 U/L (17-59); BILIRUBIN,DIRECT 0.4 mg/dL (0.0-0.4); BILIRUBIN,TOTAL 0.4 mg/dL (0.2-1.3); BLOOD UREA NITROGEN 11 mg/dL (7-20); CARBON DIOXIDE 23 mmol/L (22-30); CHLORIDE 106 mmol/L (98-107); GLUCOSE 196 mg/dL (75-110); SODIUM 143.1 mmol/L (137-145); TOTAL PROTEIN 7.3 g/dL (6.3-8.2)
[2017-10-25 21:35] LABS: NT PRO BNP 115 pg/mL (<125)
[2017-10-25 21:39] LABS: TROPONIN I < 0.012 ng/mL
[2017-10-25] MEDS ORDERED: HYDROCHLOROTHIAZIDE 12.5 MG TABLET PO ONE (22:51)
[2017-10-25] MEDS ORDERED: ALBUTEROL SULFATE 0.083% NEB 2.5 MG/3 ML AMPUL NEB ONE (22:54)
--- NOTE | 2017-10-25 22:56 | ER Document Report ---
ED General - General Chief Complaint: Headache Stated Complaint: HEADACHE, DIFFICULTY BREATHING Time Seen by Provider: 10/25/17 20:37 Notes: Patient is a 42-year-old male who presents with complaint of to 3 weeks of headaches that are mostly when he first wakes up. He also has noticed some leg swelling and edema. Is also fell a bit short of breath. No associated chest pain. No fevers. No infections. He says he has history of sleep apnea. He is going through divorce and just lost CPAP and has no idea where it is. He denies seeing a doctor about the medical problems. He saw [facility] in the past but has not seen them in a long time is currently not taking any medications. He does smoke. Has had some wheezing. TRAVEL OUTSIDE OF THE [place] IN LAST 30 DAYS: No - Related Data Allergies/Adverse Reactions: No Known Allergies Allergy (Verified 11/14/16 14:10) Past Medical History - Social History Smoking Status: Current Every Day Smoker Chew tobacco use (# tins/day): No Frequency of alcohol use: Occasional Drug Abuse: None Family History: Reviewed & Not Pertinent Patient has suicidal ideation: No Patient has homicidal ideation: No - Past Medical History Cardiac Medical History: Denies: Hx Coronary Artery Disease, Hx Hypertension Pulmonary Medical History: Denies: Hx Asthma, Hx Bronchitis, Hx COPD, Hx Pneumonia Neurological Medical History: Denies: Hx Cerebrovascular Accident, Hx Seizures Endocrine Medical History: Reports: Hx Diabetes Mellitus Type 2 - diet controlled Renal/ Medical History: Denies: Hx Peritoneal Dialysis Musculoskeletal Medical History: Denies Hx Arthritis Past Surgical History: Reports: Hx Neurologic Surgery - L4-L5 disc trim - Immunizations Hx Diphtheria, Pertussis, Tetanus Vaccination: Yes Review of Systems - Review of Systems Notes: My Normal Review Basic REVIEW OF SYSTEMS: CONSTITUTIONAL : Denies fever, chills, or sweats. Denies recent illness. EENT: Denies eye, ear, throat, or mouth pain or symptoms. Denies nasal or sinus congestion. CARDIOVASCULAR: Denies chest pain. RESPIRATORY: Some shortness of breath. Wheezing. GASTROINTESTINAL: Denies abdominal pain. Denies nausea, vomiting, or diarrhea. MUSCULOSKELETAL: Leg swelling SKIN: Denies rash or skin lesions. NEUROLOGICAL: Denies altered mental status or loss of consciousness. As headache. Denies weakness or paralysis or loss of use of either side. Denies problems with gait or speech. Denies sensory or motor loss. ALL OTHER SYSTEMS REVIEWED AND NEGATIVE. Physical Exam - Vital signs Vitals: Temp Pulse Resp BP Pulse Ox 98.8 F 79 20 175/83 H 96 10/25/17 20:30 10/25/17 20:30 10/25/17 20:30 10/25/17 20:30 10/25/17 20:30 - Notes Notes: General Appearance: Well nourished, alert, cooperative, no acute distress, no obvious discomfort. Vitals: reviewed, See vital signs table. Head: no swelling or tenderness to the head Eyes: PERRL, EOMI, Conjuctiva clear Mouth: No decreasd moisture Neck: Supple, no neck tenderness, No thyromegaly Lungs: scattered mild wheezing, No rales, No rhonci, No accessory muscle use, good air exchange bilaterally. Heart: Normal rate, Regular rythm, No murmur, no rub Abdomen: Normal BS, soft, No rigidity, No abdominal tenderness, No guarding, no rebound, Extremities: strength 5/5 in all extremities, good pulses in all extremities, no swelling or tenderness in the extremities, bilateral trace edema. Skin: warm, dry, appropriate color, no rash Neuro: speech clear, oriented x 3, normal affect, responds appropriately to questions. Course - Re-evaluation Re-evalutation: 10/26/17 01:02 Patient did have some improvement of his wheezing with albuterol treatment. I encouraged him to quit smoking will give an albuterol inhaler to go home with. I did give him dose hydrochlorothiazide which she did tolerate well without any reaction. I will prescribe him the hydrochlorothiazide to help better control his blood pressure. Patient is to be followed by the [facility]. He has just not followed up with them in a while. I informed her it is very important he follows up with them as soon as possible for reevaluation and continued treatment of his high blood pressure. I suspect that his headache and some of his shortness of breath and leg swelling most likely is related to him not having his CPAP machine anymore. His headaches and symptoms are much worse in the morning when he first wakes up. I talked about the importance of having a CPAP that without it to go on to have heart failure and other concerning conditions. Patient said he would follow up with the mixing operator about being reevaluated in being placed back on CPAP. I referred him to both our mixing operator and told to call the offices to see you can get him in the quickest. I encourage him return to ER immediately if he has any worsening of his symptoms or if he feels unwell. Patient agrees with plan will be discharged home. Dictation of this chart was performed using voice recognition software; therefore, there may be some unintended grammatical errors. - Vital Signs Vital signs: Temp Pulse Resp BP Pulse Ox 98.8 F 79 20 175/83 H 96 10/25/17 20:30 10/25/17 20:30 10/25/17 20:30 10/25/17 20:30 10/25/17 20:30 - Laboratory Result Diagrams: 10/25/17 20:56 10/25/17 20:56 Laboratory results interpreted by me: 10/25/17 10/25/17 20:56 20:56 MCHC 36.5 H Glucose 196 H Discharge - Discharge Clinical Impression: Wheezing, Leg swelling Sleep apnea Qualifiers: Sleep apnea type: unspecified type Qualified Code(s): G47.30 - Sleep apnea, unspecified Hypertension Qualifiers: Hypertension type: unspecified Qualified Code(s): I10 - Essential (primary) hypertension Condition: Good Disposition: HOME, SELF-CARE Additional Instructions: I suspect that most of your symptoms are related to you being without your CPAP machine. Sleep apnea when untreated can cause difficulty breathing, headaches, extremity swelling. It is very important that you get back on a CPAP machine. Please follow-up with Dr. Garcia or Dr. Torres about reevaluation and recommendations about being placed back on your CPAP machine. Your blood pressure is a little bit high. Please take blood pressure medication as prescribed. Please try to reestablish yourself with your primary care doctor and follow-up with them in the next week for reevaluation. Return to ER if you have chest pain, worsening difficulty breathing, fevers, or if you feel unwell. You did have some wheezing on exam. Please try to quit smoking. You can use the albuterol inhaler as 2 puffs every 4 hours as needed for wheezing. Prescriptions: Hydrochlorothiazide 12.5 mg PO DAILY #14 tablet Forms: Return to Work Referrals: VÍCTOR TORRES MD [ACTIVE STAFF] - Follow up in 3-5 days BLANCA GARCIA MD [ACTIVE STAFF] - Follow up in 3-5 days
[2017-10-26] MEDS ORDERED: ALBUTEROL SULFATE HFA (90 MCG/PUFF) 8 GM MDI (1 MDI/ER DISP) IH ONE (00:56)
[2017-10-26 01:37] VITALS: BP 129/86
== END 2017-10-26 01:15 | disposition home or self-care (01) ==
LOC: ER 20:12
DX: G47.30 Sleep apnea, unspecified (principal); R06.2 Wheezing; M79.89 Other specified soft tissue disorders; R51 Headache; I10 Essential (primary) hypertension; F17.200 Nicotine dependence, unspecified, uncomplicated
CPT/HCPCS: 94640; 99285; 36415; 85025; 80053; 84484; 83880; 71046; J3490

== ENCOUNTER 2017-11-14 02:27 | Emergency (ER) | payer BC ==
[2017-11-14 02:57] LABS: ABSOLUTE BASOPHILS # (AUTO) 0.1 10^3/uL (0.0-0.2); ABSOLUTE EOSINOPHILS # (AUTO) 0.4 10^3/uL (0.0-0.6); ABSOLUTE LYMPHOCYTES (AUTO) 3.1 10^3/uL (0.5-4.7); ABSOLUTE MONOCYTES (AUTO) 0.5 10^3/uL (0.1-1.4); ABSOLUTE NEUT (AUTO) 4.8 10^3/uL (1.7-8.2); BASOPHILS % (AUTO) 0.6 % (0-2); HEMATOCRIT 41.6 % (37.9-51.0); HEMOGLOBIN 14.6 g/dL (13.5-17.0); LYMPHOCYTES % (AUTO) 34.4 % (13-45); MEAN CORPUSCULAR HEMOGLOBIN 29.4 pg (27.0-33.4); MEAN CORPUSCULAR HGB CONC 35.2 g/dL (32.0-36.0); MEAN CORPUSCULAR VOLUME 84 fl (80-97); MONOCYTES % (AUTO) 5.9 % (3-13); PLATELET COUNT 149 10^3/uL (150-450); RED BLOOD COUNT 4.97 10^6/uL (4.35-5.55); RED CELL DISTRIBUTION WIDTH 13.7 % (11.5-14.0); SEGMENTED NEUTROPHILS % (AUTO) 54.1 % (42-78); TOTAL CELLS COUNTED % (AUTO) 100 %; WHITE BLOOD COUNT 8.9 10^3/uL (4.0-10.5)
[2017-11-14] MEDS ORDERED: MORPHINE SULFATE 10 MG/ML INJ IV ONE (03:09)
--- NOTE | 2017-11-14 03:11 | ER Document Report ---
ED General - General Stated Complaint: POSSIBLE SYNCOPE Time Seen by Provider: 11/14/17 02:57 Notes: Patient is a 42-year-old male who presents with complaint of an episode where he started to feel very weak suddenly diaphoretic and dizzy. He was at work when this occurred. He says he was just wiping off the counters. He was not doing any exertional. He went to his bosses office and then passed out. When he woke up he had a severe headache. The only complaint he has is of pain on his left shoulder from where he hit his left shoulder. Denies any chest pain. No focal weakness or numbness. Some nausea but no vomiting. He does have family history of cerebral aneurysms. TRAVEL OUTSIDE OF THE [place] IN LAST 30 DAYS: No - Related Data Allergies/Adverse Reactions: No Known Allergies Allergy (Verified 11/14/16 14:10) Past Medical History - Social History Smoking Status: Unknown if Ever Smoked Frequency of alcohol use: None Drug Abuse: None Family History: Reviewed & Not Pertinent - Past Medical History Cardiac Medical History: Denies: Hx Coronary Artery Disease, Hx Hypertension Pulmonary Medical History: Denies: Hx Asthma, Hx Bronchitis, Hx COPD, Hx Pneumonia Neurological Medical History: Denies: Hx Cerebrovascular Accident, Hx Seizures Endocrine Medical History: Reports: Hx Diabetes Mellitus Type 2 - diet controlled Renal/ Medical History: Denies: Hx Peritoneal Dialysis Musculoskeletal Medical History: Denies Hx Arthritis Past Surgical History: Reports: Hx Neurologic Surgery - L4-L5 disc trim - Immunizations Hx Diphtheria, Pertussis, Tetanus Vaccination: Yes Physical Exam - Vital signs Vitals: Resp 12 11/14/17 02:31 Course - Re-evaluation Re-evalutation: 11/14/17 03:09 Patient's symptoms are concerning and that he had a syncopal episode followed by severe headache and his family history of cerebral aneurysms. I have ordered a CT scan and informed the nurse to take him directly to CT. 11/14/17 03:44 CT scan does not show any bleeding however does show a arachnoid cyst. Patient says is been told for the arachnoid cyst as well as follow-up and have a contrasted study to make sure it was an arachnoid cyst, but he never did. I will do a CT angiogram to make sure that there is not an associated aneurysm. 11/14/17 05:06 CTA fortunately does not show evidence of aneurysm. Patient's headache is improved. I do not suspect subarachnoid hemorrhage now that patient has both a CT and CTA that were done within 3 hours of the onset of symptoms and they are both negative. I am concerned with patient's syncopal episode and diaphoresis and sweating had leading up to the passing out. I informed him that I feel that is appropriate to admit him. I told him that his syncope could be related to an OH, arrhythmia or something that is more serious that we are not yet seen on the initial workup here in the ER. I strongly encouraged him to stay in the hospital as an observation with telemetry in order to fully workup his syncopal episode. Patient refuses to stay in the hospital. He wants to leave. After long conversation was able to get him to at least stay for repeat troponin. I have ordered a repeat troponin now. 11/14/17 06:34 Repeat Troponin is negative. Patient still does not want to stay in the ER. I informed him that respect his decision to not want stay however we do want him to stay because I do not know the exact cause of a syncopal episode and his diaphoresis and him feeling unwell. I informed him that I cannot rule out life- threatening calls of his syncopal episode of initial testing done here. I feel that he needs to stay for telemetry observation. Patient shows understanding of this but still does not want to stay and says his family doctor has follow- up hours and he will follow-up with his doctor today in office. I informed patient that we are happy to take care of him at any time and strongly encourage him return to ER anytime for reevaluation and continued workup. Patient will be discharged as he requested. Dictation of this chart was performed using voice recognition software; therefore, there may be some unintended grammatical errors. - Vital Signs Vital signs: Temp Pulse Resp BP Pulse Ox 98.7 F 18 117/46 L 96 11/14/17 02:34 11/14/17 05:31 11/14/17 05:31 11/14/17 05:31 - Laboratory Result Diagrams: 11/14/17 02:45 11/14/17 02:45 Laboratory results interpreted by me: 11/14/17 11/14/17 11/14/17 02:45 02:45 04:02 Plt Count 149 L Glucose 123 H Urine Urobilinogen 2.0 H - EKG Interpretation by Me Additional EKG results interpreted by me: 11/14/17 03:18 EKG is reviewed and interpreted by me. EKG shows normal sinus rhythm with a rate of [address] segment elevation or depression. No ischemic T wave inversions. MT interval is borderline. QRS duration, QTc intervals are within normal range. Old EKG for comparison is from August 22, 2017. Discharge - Discharge Clinical Impression: Syncope Qualifiers: Syncope type: unspecified Qualified Code(s): R55 - Syncope and collapse Headache Qualifiers: Headache type: unspecified Headache chronicity pattern: acute headache Intractability: not intractable Qualified Code(s): R51 - Headache Condition: Good Disposition: HOME, SELF-CARE Additional Instructions: As discussed with you, I do not know the exact cause of your passing out episode today. I feel that you should stay in the hospital because we do not know what has caused your passing out episode and I do not feel I can fully rule out a life-threatening or serious cause. We respect your right to make the decision to not want to stay. We want what is best for you and therefore we strongly encouraged you to return to the ER immediately if you change your mind about admission or you have recurrence of your symptoms or feel unwell in any way. We are happy to take care of you any time. Please follow-up with your doctor today for close reevaluation. Please rest over the next 24 hours. Prescriptions: Hydrochlorothiazide 12.5 mg PO DAILY #14 capsule Forms: Return to Work
[2017-11-14 03:21] LABS: ALANINE AMINOTRANSFERASE 55 U/L (21-72); ALBUMIN 4.1 g/dL (3.5-5.0); ALKALINE PHOSPHATASE 68 U/L (38-126); ANION GAP 11 (5-19); ASPARTATE AMINO TRANSFERASE 26 U/L (17-59); BILIRUBIN,DIRECT 0.2 mg/dL (0.0-0.4); BILIRUBIN,TOTAL 0.4 mg/dL (0.2-1.3); BLOOD UREA NITROGEN 9 mg/dL (7-20); CALCIUM 9.4 mg/dL (8.4-10.2); CARBON DIOXIDE 25 mmol/L (22-30); CHLORIDE 106 mmol/L (98-107); CREATINE KINASE 166 U/L (55-170); GLUCOSE 123 mg/dL (75-110); POTASSIUM 3.8 mmol/L (3.6-5.0); SODIUM 142.2 mmol/L (137-145)
--- NOTE | 2017-11-14 03:25 | RADIOLOGY REPORT (SQ) ---
EXAM DESCRIPTION: CT HEAD WITHOUT IV CONTRAST COMPLETED DATE/TME: 11/14/2017 03:09 CLINICAL HISTORY: 42 years, Male, severe headache COMPARISON: 12/28/2016 TECHNIQUE: Axial CT images of the brain were obtained without contrast. Sagittal and coronal reformats were performed. [facility] [id number] Images stored on PACS. All CT scanners at this facility use dose modulation, iterative reconstruction, and/or weight based dosing when appropriate to reduce radiation dose to as low as reasonably achievable (ALARA). [facility]: Dose Right [facility]: CareDose [facility]: Dose Right [facility]: Teradose 4D [facility]: [employer] LIMITATIONS: None. FINDINGS: There is no acute infarct, hemorrhage, mass, edema, hydrocephalus, or extra-axial fluid collection. There is a 2.7 x 1.5 cm arachnoid cyst within the left middle cranial fossa. The paranasal sinuses and mastoid air cells are clear. The sella is normal. There is no acute fracture. IMPRESSION: No acute intracranial abnormality TECHNICAL DOCUMENTATION: Quality ID # [id number]: Final reports with documentation of one or more dose reduction techniques (e.g., Automated exposure control, adjustment of the mA and/or kV according to patient size, use of iterative reconstruction technique) 2010 [employer]- All Rights Reserved
[2017-11-14 03:26] LABS: CREATINE KINASE MB 1.83 ng/mL (<4.55)
[2017-11-14 03:31] LABS: TROPONIN I < 0.012 ng/mL
--- NOTE | 2017-11-14 03:38 | RADIOLOGY REPORT (SQ) ---
EXAM DESCRIPTION: XR SHOULDER 2 OR MORE VIEWS COMPLETED DATE/TME: 11/14/2017 03:12 CLINICAL HISTORY: 42 years Male, trauma COMPARISON: None. Findings: Deformity of the left mid clavicle suggests prior injury. [id number] left acromioclavicular osteoarthritis. Bones, joints, and soft tissues of the LEFT XR SHOULDER 3 VIEWS appear otherwise intact. IMPRESSION: No acute findings.
[2017-11-14] MEDS ORDERED: ONDANSETRON HCL INJ/PF 4 MG/2 ML SDV IV ONE (04:24)
--- NOTE | 2017-11-14 04:37 | RADIOLOGY REPORT (SQ) ---
EXAM DESCRIPTION: CT HEAD ANGIOGRAPHY WITHOUT THEN WITH IV CONTRAST COMPLETED DATE/TME: 11/14/2017 03:26 CLINICAL HISTORY: 42 years Male, headache Comparison: CT, same day, 12/28/2016. Technique: IV contrast. Coronal and sagittal reformat. 3d reconstruction. This exam was performed according to our departmental dose-optimization program, which includes automated exposure control, adjustment of the mA and/or kV according to patient size and/or use of iterative reconstruction technique. [facility]: Dose Right [facility]: CareDose [facility]: Dose Right [facility]: Teradose 4D [facility]: [employer] LIMITATIONS: None Findings: [place] of [place] appears intact. No significant stenosis, no occlusion, and no aneurysm. No vasculitides. 3.2 cm likely arachnoid cyst of the right middle fossa, stable. IMPRESSION: No acute findings.
[2017-11-14 05:31] LABS: APPEARANCE,URINE SLIGHTLY-CLOUDY; BILIRUBIN,URINE NEGATIVE (NEGATIVE); COLOR,URINE YELLOW; GLUCOSE, URINE NEGATIVE (NEGATIVE); KETONES,URINE NEGATIVE (NEGATIVE); LEUKOCYTE ESTERASE,URINE NEGATIVE (NEGATIVE); NITRITE,URINE NEGATIVE (NEGATIVE); PROTEIN,URINE NEGATIVE (NEGATIVE); URINE SPECIFIC GRAVITY 1.028
[2017-11-14 06:34] VITALS: BP 154/103
--- NOTE | 2017-11-14 06:52 | EKG REPORT ---
SEVERITY:- NORMAL ECG - SINUS RHYTHM : Confirmed by: Vero Arshad 14-Nov-2017 06:51:56
[2017-11-14 08:30] LABS: URINE AMPHETAMINES SCREEN NEGATIVE; URINE BARBITURATES SCREEN NEGATIVE; URINE BENZODIAZEPINES SCREEN NEGATIVE; URINE COCAINE SCREEN NEGATIVE; URINE MARIJUANA (THC) SCREEN NEGATIVE; URINE METHADONE SCREEN NEGATIVE; URINE PHENCYCLIDINE SCREEN NEGATIVE
== END 2017-11-14 06:56 | disposition home or self-care (01) ==
LOC: ER 02:27
DX: R55 Syncope and collapse (principal); R51 Headache; R61 Generalized hyperhidrosis; E11.9 Type 2 diabetes mellitus without complications
CPT/HCPCS: 93005; 99285; 96374; 96375; 36415; 82553; 82550; 85025; 80053; 81001; 84484; 80307; 73030; 70450; 70496; 93010; J2270; J2405